=== PATIENT | female | born 1965 | race Two or more races ===

== ENCOUNTER 2021-10-02 02:03 | Emergency (ER) | payer SELFPAY ==
[~2021-10-02] VITALS: Ht 167.6 cm; Wt 65.8 kg
[2021-10-02] MEDS ORDERED: HYDROCODONE/APAP 5/325MG TABLET ONE (02:25)
[2021-10-02] MEDS ORDERED: KETOROLAC TROMETHAMINE INJ 30 MG/ML VIAL ONE (02:25)
[2021-10-02] MEDS ORDERED: KETOROLAC TROMETHAMINE INJ 60 MG/2 ML VIAL IM ONE ×2 (02:26→02:30)
[2021-10-02] MEDS ORDERED: HYDROCODONE/APAP 5/325MG TABLET PO ONE (02:30)
--- NOTE | 2021-10-02 02:31 | NUR ---
BIBRA C/O R LOWER BACK PAIN X1 WEEK AND "DIFFICULTY" URINATING. PT AWAKE AND ALERT BREATHING EVEN AND UNLABORED. ALL V/S WNL MD WAS AT BEDSIDE FOR EVAL.
--- NOTE | 2021-10-02 03:01 | NUR ---
urine collected and sent to lab
[2021-10-02 03:11] LABS: BILIRUBIN,URINE NEGATIVE (NEGATIVE); COLOR,URINE YELLOW (YELLOW); LEUKOCYTE ESTERASE ,URINE NEGATIVE (NEGATIVE); NITRITE, URINE NEGATIVE (NEGATIVE); PROTEIN,URINE NEGATIVE (NEGATIVE); UGLUCOSE NEGATIVE (NEGATIVE); UROBILINOGEN,URINE 0.2 EU/dL (0.2)
[2021-10-02] MEDS ORDERED: KETO10TA2 PO (03:39)
[2021-10-02] MEDS ORDERED: OXYC-128 PO (03:39)
--- NOTE | 2021-10-02 03:48 | NUR ---
Patient discharged to home in stable condition. Written and verbal after care instructions given. Patient verbalizes understanding of instruction.
[2021-10-02 03:50] VITALS: BP 132/55
== END 2021-10-02 03:50 | disposition home or self-care (01) ==
LOC: ER 02:08
DX: M54.50 Low back pain, unspecified (principal)
CPT/HCPCS: 81003; 96372; 99283; J1885